=== PATIENT | male | born 1955 | race Caucasian/White ===

== ENCOUNTER 2022-04-26 09:26 | Outpatient (CLI) | payer MEDICARE | END 2022-04-26 09:27 | disposition home or self-care (01) | LOC: CSHCT 09:26 | PROVIDERS: ATTEND Neurological Surgery | DX: S12.100A Unspecified displaced fracture of second cervical vertebra, initial encounter for closed fracture (principal); S12.000A Unspecified displaced fracture of first cervical vertebra, initial encounter for closed fracture | CPT/HCPCS: 72125 ==

== ENCOUNTER 2022-06-16 13:05 | Outpatient (CLI) | payer MEDICARE, OTHER | END 2022-06-16 13:06 | disposition home or self-care (01) | LOC: CSHCT 13:05 | PROVIDERS: ATTEND Neurological Surgery | DX: S12.000A Unspecified displaced fracture of first cervical vertebra, initial encounter for closed fracture (principal); M43.8X2 Other specified deforming dorsopathies, cervical region | CPT/HCPCS: 72125 ==

== ENCOUNTER 2022-10-16 09:38 | Outpatient (CLI) | payer OTHER | END 2022-10-16 09:39 | disposition home or self-care (01) | LOC: CSHCT 09:38 | PROVIDERS: ATTEND Neurological Surgery | DX: M54.2 Cervicalgia (principal); S12.000D Unspecified displaced fracture of first cervical vertebra, subsequent encounter for fracture with routine healing; S12.100D Unspecified displaced fracture of second cervical vertebra, subsequent encounter for fracture with routine healing | CPT/HCPCS: 72125 ==